=== PATIENT | female | born 2000 | race Two or more races ===

== ENCOUNTER → 2020-06-12 | Outpatient (CLI) | payer OTHER | END | disposition home or self-care (01) | LOC: PRENATAL 13:30 | PROVIDERS: ATTEND Obstetrics & Gynecology Maternal & Fetal Medicine | DX: O35.0XX1 Maternal care for (suspected) central nervous system malformation in fetus, fetus 1 (principal); O35.3XX1 Maternal care for (suspected) damage to fetus from viral disease in mother, fetus 1; O98.512 Other viral diseases complicating pregnancy, second trimester; Z36.89 Encounter for other specified antenatal screening; Z3A.25 25 weeks gestation of pregnancy ==

== ENCOUNTER 2020-08-22 18:44 | Outpatient (CLI) | payer OTHER ==
[2020-08-22] MEDS ORDERED: PRENATAL TABLE1 EAC1 PO (19:08)
[2020-08-22] MEDS ORDERED: KEFLEX750 MG PO (19:09)
[2020-08-23] MEDS ORDERED: FERROUS SULFAT325 MG PO (11:33)
[2020-08-23] MEDS ORDERED: MACRODANTIN100 M1 PO (11:33)
== END 2020-08-23 13:03 | disposition home or self-care (01) ==
LOC: OBS/DEL 18:44
PROVIDERS: ATTEND Obstetrics & Gynecology
DX: O26.893 Other specified pregnancy related conditions, third trimester (principal); Z3A.35 35 weeks gestation of pregnancy

== ENCOUNTER 2020-09-03 06:34 | Inpatient (IN) | payer OTHER ==
[~2020-09-03] VITALS: Ht 167.6 cm; Wt 116.1 kg
[~2020-09-03 06:34] MED LIST: FERROUS SULFAT325 MG PO; KEFLEX750 MG PO; MACRODANTIN100 M1 PO; PRENATAL TABLE1 EAC1 PO
[2020-09-03] MEDS ORDERED: ADULT ASPIRIN81 MG PO (09:50)
== END 2020-09-06 14:24 | disposition home or self-care (01) | DRG 787 ==
LOC: LDR 06:34 → O/R 09-04 18:20 → OB/GYN 09-04 19:19 → SURG-SUITE 09-05 10:03
PROVIDERS: ADMIT Obstetrics & Gynecology; ATTEND Obstetrics & Gynecology
PROC: 3E0P7VZ Introduction of Hormone into Female Reproductive, Via Natural or Artificial Opening (ICD-10-PCS; 2020-09-03)
PROC: 4A1HXFZ Monitoring of Products of Conception, Cardiac Rhythm, External Approach (ICD-10-PCS; 2020-09-03)
PROC: 10D00Z1 Extraction of Products of Conception, Low, Open Approach (ICD-10-PCS; principal; 2020-09-04 15:00)
DX: O61.0 Failed medical induction of labor (principal); O23.43 Unspecified infection of urinary tract in pregnancy, third trimester; O14.04 Mild to moderate pre-eclampsia, complicating childbirth; O13.4 Gestational [pregnancy-induced] hypertension without significant proteinuria, complicating childbirth; Z3A.37 37 weeks gestation of pregnancy; Z37.0 Single live birth; Z20.822 Contact with and (suspected) exposure to COVID-19